=== PATIENT | female | born 1990 | race Hispanic/Latino ===

== ENCOUNTER 2023-06-05 12:51 | Emergency (ER) | payer OTHER ==
[~2023-06-05] VITALS: Ht 154.9 cm; Wt 83.9 kg
[2023-06-05 13:26] VITALS: BP 130/82; PULSE 71; RESP 16; O2SAT 100
[2023-06-05] MEDS ORDERED: DEXAMETHASONE SOD PHOSPHATE 4 MG/ML 1ML VIAL IM STA (14:00)
[2023-06-05] MEDS ORDERED: AMOX500C2 PO (14:48)
[2023-06-05] MEDS ORDERED: PRED5TAB PO (14:48)
== END 2023-06-05 15:20 | disposition home or self-care (01) ==
LOC: EDH 12:51
DX: I89.1 Lymphangitis (principal); J02.9 Acute pharyngitis, unspecified
CPT/HCPCS: 99283; 87880; 81025; 96372; J1100

== ENCOUNTER 2023-06-08 10:02 | Emergency (ER) | payer OTHER ==
[~2023-06-08] VITALS: Ht 154.9 cm; Wt 88.5 kg
[~2023-06-08 10:02] MED LIST: AMOX500C2 PO; PRED5TAB PO
[2023-06-08 11:15] LABS: RAPID GROUP A STREP negative (NEGATIVE)
[2023-06-08 11:17] LABS: SARS-CoV-2, RNA, NAAT NEGATIVE SARS CoV-2 (NEGATIVE)
[2023-06-08 11:20] LABS: INFLUENZA TYPE A Negative For Type A (NEGATIVE); INFLUENZA TYPE B Negative For Type B (NEGATIVE)
[2023-06-08] MEDS ORDERED: 0.9%NACL 1000ML 1,000 ML IV ONE (13:30)
[2023-06-08] MEDS ORDERED: ONDANSETRON 4MG INJ IVP ONE (13:30)
[2023-06-08 14:14] LABS: BASOPHILS # (AUTO) 0.05 K/uL (0.00-0.20); BASOPHILS % (AUTO) 0.3 % (0.0-5.0); EOSINOPHILS # (AUTO) 0.11 K/uL (0.00-0.70); EOSINOPHILS % (AUTO) 0.7 % (0.0-8.0); IMMATURE GRANULOCYTE ABSOLUTE 0.07 K/uL (0-1); LYMPHOCYTES % (AUTO) 19.3 % (21.0-51.0); MEAN CORPUSCULAR HEMOGLOBIN 29.9 pg (27.0-33.0); MEAN CORPUSCULAR HGB CONC 33.6 g/dL (32.0-36.0); MEAN CORPUSCULAR VOLUME 89.2 fL (79-99); MONOCYTES # (AUTO) 1.6 K/uL (0.1-1.0); MONOCYTES % (AUTO) 10.2 % (3.0-13.0); NEUTROPHILS # (AUTO) 10.8 K/uL (1.8-7.7); NEUTROPHILS % (AUTO) 69.1 % (40.0-77.0); PLATELET COUNT (AUTO) 356 K/uL (130-400); RED BLOOD CELL COUNT(AUTO) 4.71 MIL/uL (4.00-5.50); RED CELL DISTRIBUTION WIDTH 13.2 % (11.0-15.5); WHITE BLOOD COUNT (AUTO) 15.6 K/uL (4.8-10.8)
[2023-06-08 14:25] LABS: CREATININE 0.9 mg/dL (0.5-1.5); POTASSIUM 3.3 mmol/L (3.5-5.1)
[2023-06-08 14:30] LABS: ALBUMIN 3.4 g/dL (3.5-5.0); BILIRUBIN,TOTAL 0.5 mg/dL (0.2-1.0); TOTAL PROTEIN, SERUM 8.2 g/dL (6.0-8.3)
[2023-06-08] MEDS ORDERED: KCL 20 MEQ ERTAB PO ONE (15:00)
[2023-06-08 16:00] LABS: APPEARANCE,URINE CLOUDY (CLEAR); BILIRUBIN,URINE NEGATIVE (NEGATIVE); COLOR,URINE YELLOW (YELLOW); GLUCOSE, URINE (UA) NEGATIVE (NEGATIVE); KETONES,URINE NEGATIVE (NEGATIVE); LEUKOCYTE ESTERASE ,URINE NEGATIVE Leu/uL (NEGATIVE); NITRATE,URINE NEGATIVE (NEGATIVE); PROTEIN,URINE 20 mg/dL (NEGATIVE); UROBILINOGEN,URINE 0.2 mg/dL (0.2-1.0)
[2023-06-08] MEDS ORDERED: KETOROLAC 15MG/ML VIAL (15MG/ML) IV ONE (16:00)
[2023-06-08 16:03] LABS: ADD UA MICROSCOPIC YES
[2023-06-08 16:05] LABS: BACTERIA,URINE RARE /HPF (None Seen); MUCUS,URINE FEW LPF (None Seen); NON-SQUAMOUS EPITHELIAL CELL <1 /HPF (0-2); SQUAMOUS EPITHELIAL CELL,UR MOD /HPF (0-2)
[2023-06-08] MEDS ORDERED: AZIT500T4 PO (16:46)
[2023-06-08] MEDS ORDERED: IBUP-2070 PO (16:49)
[2023-06-08] MEDS ORDERED: ONDA4TAB10 PO (16:50)
[2023-06-08] MEDS ORDERED: CYCLOBENZAPRINE HCL 10 MG TABLET PO ONE (17:00)
[2023-06-08 17:31] VITALS: BP 118/78; PULSE 89; RESP 16; O2SAT 99
== END 2023-06-08 17:36 | disposition home or self-care (01) ==
LOC: EDH 10:02
DX: G43.009 Migraine without aura, not intractable, without status migrainosus (principal); R09.89 Other specified symptoms and signs involving the circulatory and respiratory systems; J02.9 Acute pharyngitis, unspecified; R11.10 Vomiting, unspecified; E86.0 Dehydration; Z20.822 Contact with and (suspected) exposure to COVID-19; Z79.899 Other long term (current) drug therapy
CPT/HCPCS: 99284; 96374; 96361; 71045; 87635; 96375; 80053; 84703; 85025; 87880; 87804 ×2; 81001; 36415; C9803; J7030; J2405; J1885